=== PATIENT | male | born 1950 | race Caucasian/White ===

== ENCOUNTER 2025-05-01 14:21 | Emergency (ER) | payer MEDICARE, SELFPAY ==
[2025-05-01 14:37] VITALS: BP 165/100; PULSE 77; TEMP 36.9; O2SAT 97; BMI 27.2
--- OUTSIDE RECORDS SUMMARY | 2025-05-01 14:47 | XMS_ITS | Clinical Summary ---
Author Organization [employer] tem Address [id number] [address] [place] [address] Care Team Providers Care Stock Or Delivery Clerk Name Role Phone Unavailable Primary Care Provider Unavailabl e Immunizations ImmunizationAdministration DatesNext DueCOVID-19, mRNA, LNP-S, PF, 100mcg/0.5mL Dose10/01/2020,09/03/2020 Social History Tobacco UseTypesPacks/DayYears UsedDateSmoking Tobacco: Never AssessedChildcare AnswerDate OuxnnlxtFieydzgkfOcbxohj82/05/2021EmploymentAnswerDate Recorded SkqpntgrfdUcrsrgp17/05/2021Purpose - LifeAnswerDate RecordedPurpose and direction in mszvPphxrdm03/05/2021ex and Gender InformationValueDate Recorded Sex Assigned at BirthNot on fileLegal UouMske8302/04/2015 11:43 AM EDTGender IdentityNot on fileSexual OrientationNot on file Plan of Treatment Health MaintenanceDue DateLast DoneCommentsDepression Lriubxfvb77/14/1964Tobacco Sapcaszvk89/14/1964Adult BMI Xyajeveqo77/14/1970DTaP,Tdap and Td Vaccines (1 - Tdap)1971Zoster (Shingles) Vaccine (2 of 3)Fall Risk Oanoiqwbv31/14/2017COVID-19 Vaccine (3 - season)2020, 09/03/2020Influenza Gwylfpp91/03/2020, 03/31/2019, 03/30/2018, Additional history exists Medical Devices Not on file Insurance
[2025-05-01 15:19] LABS: Hematocrit 41.0 % (42.0-54.0); Hemoglobin 14.0 g/dL (14.0-18.0); Immature Granulocytes Abs Auto 0.02 10^3/uL (0.00-0.03); Immature Granulocytes Pct Auto 0.3 % (0.0-0.5); Lymphocytes Absolute Auto 1.1 10^3/uL (1.2-3.8); Mean Corpuscular HGB Conc 34.1 g/dL (29.9-35.2); Mean Corpuscular Hemoglobin 32.4 pg (25.9-34.0); Mean Corpuscular Volume 94.9 fL (80.0-94.0); Platelet Count 143 10^3/uL (150-450); Red Blood Count 4.32 10^6/uL (4.70-6.10); White Blood Count 6.2 10^3/uL (4.0-11.0)
[2025-05-01 15:31] LABS: Alanine Aminotransferase 29 U/L (16-63); Albumin Globulin Ratio 0.8; Albumin Level 3.4 g/dL (3.4-5.0); Alkaline Phosphatase 46 U/L (46-116); Anion Gap 11.7; Aspartate Amino Transferase 20 U/L (15-37); Blood Urea Nitrogen 12.0 mg/dL (7.0-18.0); Calcium 9.3 mg/dL (8.5-10.1); Carbon Dioxide 26.5 mmol/L (21.0-32.0); Chloride 103 mmol/L (98-107); Estimated GFR (African America >60 (>=60 mL/min/1.73m^2); Estimated GFR (Non-African Ame >60 (>=60 mL/min/1.73m^2); Globulin 4.3 g/dL; Glucose 123 mg/dL (74-106); Potassium 4.2 mmol/L (3.5-5.1); Sodium 137 mmol/L (136-145); Total Protein 7.7 g/dL (6.4-8.2)
[2025-05-01 15:32] LABS: INR 1.03; Prothrombin Time 10.9 sec (9.0-11.6)
--- NOTE | 2025-05-01 16:20 | ED_ITS ---
HPI - Extremity Problem General Chief complaint: Extremity Problem, Nontraumatic Stated complaint: R LEG PAIN & SWELLING Time Seen by Provider: 05/01/25 14:52 Source: patient Mode of arrival: walk-in Limitations: no limitations History of Present Illness HPI Narrative: Is coming to the ER with 2 to 3 days history of right leg swelling that started without any history of any long trips or any surgery, the patient did not have any fall, patient mentioned that the swelling today is better than what it was 2 days ago but he mentioned that he has been sitting more than usual as he is searching a lot of things on the Internet No chest pain no shortness of breath Related Data Previous Rx's ?Medication ?Instructions ?Recorded apixaban 5 mg tablet (Eliquis) 5 mg PO .as directed 30 days #45 05/01/25 tabs Allergies Allergy/AdvReac Type Severity Reaction Status Date / Time cephalexin (From Keflex) Allergy Difficulty Verified 05/01/25 14:36 Breathing Review of Systems ROS Status of ROS 10 or more systems reviewed and unremark able except as noted in history and below PFSH PFSH Social History Little interest or pleasure in doing things: not at all Feeling down, depressed, or hopeless: not at all Exam Narrative Exam Narrative: Nurses notes and vital signs reviewed and patient is not hypoxic. General: Well-appearing and in no apparent distress. Skin: Warm, dry, no pallor noted. No rash. Head: Normocephalic, atraumatic. Neck: Supple, non-tender. Eye: Pupils are equal, round and EOMI. No scleral icterus. Cardiovascular: Regular Rate and Rhythm without murmur, gallop or rub. Respiratory: No accessory muscle use or respiratory distress. Lungs are clear to auscultation, no wheezing, rales or rhonchi Chest Wall: no tenderness Back: No midline thoracic or lumbar vertebral tenderness. No CVA tenderness Musculoskeletal: The patient have a good anterior tibial pulse there is no vascular injury detected in the right lower extremity he also had a good capillary refill, but the patient have significant edema on the right side mostly 2+ and the edema is in the whole leg from the thigh downwards, there is no tenderness on palpation and the patient have full range of movement GI: Abdomen is soft, non-distended. Normal bowel sounds. No masses appreciated. No tenderness to palpation. No rebound, guarding, or rigidity noted. Neurological: A&O x4. No cranial nerve dysfunction observed. No truncal ataxia. Moves all extremities. Sensation intact. Psychiatric: Cooperative and interactive. Normal mood and affect. Constitutional Vital Signs, click to edit/add: Last Vital Signs Temp 98.4 F 05/01/25 14:37 Pulse 77 05/01/25 14:37 Resp 12 05/01/25 14:37 BP 165/100 H 05/01/25 14:37 Pulse Ox 97 05/01/25 14:37 O2 Del Method Room Air 05/01/25 14:37 Course Vital Signs Vital signs: Vital Signs Temperature 98.4 F 05/01/25 14:37 Pulse Rate 77 05/01/25 14:37 Respiratory Rate 12 05/01/25 14:37 Blood Pressure 165/100 H 05/01/25 14:37 Pulse Oximetry 97 05/01/25 14:37 Oxygen Delivery Method Room Air 05/01/25 14:37 Temperature 98.4 F 05/01/25 14:37 Pulse Rate 77 05/01/25 14:37 Respiratory Rate 12 05/01/25 14:37 Blood Pressure 165/100 H 05/01/25 14:37 Pulse Oximetry 97 05/01/25 14:37 Oxygen Delivery Method Room Air 05/01/25 14:37 MDM - Extremity (Nontraumatic) MDM Narrative Medical decision making narrative: CBC and chemistry showed no acute pathology Ultrasound of the right lower extremity showed that the patient have DVT of the right femoral popliteal and posterior tibial veins The patient case discussed with regarding the new extensive DVT and for now the patient is good to be discharged with Eliquis Avoid any exertion educated about the symptoms of shortness of breath and chest pain that could be secondary to PE He will follow-up with Dr. Murrell next week The patient to follow-up with the primary care within 2 to 3 days and to come back to the ER in case of any worsening of the current symptoms or any new symptoms or concerns Lab Data Labs: Lab Results 05/01/25 Range/Units 15:07 WBC 6.2 (4.0-11.0) 10^3/uL RBC 4.32 L (4.70-6.10) 10^6/uL Hgb 14.0 (14.0-18.0) g/dL Hct 41.0 L (42.0-54.0) % MCV 94.9 H (80.0-94.0) fL MCH 32.4 (25.9-34.0) pg MCHC 34.1 (29.9-35.2) g/dL RDW 11.6 (11.0-15.0) % Plt Count 143 L (150-450) 10^3/uL MPV 9.2 L (9.5-13.5) fL Neut % (Auto) 68.9 (43.0-75.0) % Lymph % (Auto) 18.2 L (20.5-60.0) % [place] % (Auto) 8.6 (1.7-12.0) % Eos % (Auto) 2.9 (0.9-7.0) % Baso % (Auto) 1.1 (0.2-2.0) % Neut # (Auto) 4.3 (1.4-6.5) 10^3/uL Lymph # (Auto) 1.1 L (1.2-3.8) 10^3/uL [place] # (Auto) 0.5 (0.3-0.8) 10^3/uL Eos # (Auto) 0.2 (0.0-0.7) 10^3/uL Baso # (Auto) 0.1 (0.0-0.1) 10^3/uL Abs Immat Gran (auto) 0.02 (0.00-0.03) 10^3/uL Imm/Tot Granulo (auto) 0.3 (0.0-0.5) % PT 10.9 (9.0-11.6) sec INR 1.03 Sodium 137 (136-145) mmol/L Potassium 4.2 (3.5-5.1) mmol/L Chloride 103 (98-107) mmol/L Carbon Dioxide 26.5 (21.0-32.0) mmol/L Anion Gap 11.7 BUN 12.0 (7.0-18.0) mg/dL Creatinine 1.18 (0.70-1.30) mg/dL Est GFR ( Amer) >60 (>=60 mL/min/1.73m^2) Est GFR (Non-Af Amer) >60 (>=60 mL/min/1.73m^2) BUN/Creatinine Ratio 10.2 Glucose 123 H (74-106) mg/dL Calcium 9.3 (8.5-10.1) mg/dL Total Bilirubin 0.7 (0.2-1.0) mg/dL AST 20 (15-37) U/L ALT 29 (16-63) U/L Alkaline Phosphatase 46 (46-116) U/L Total Protein 7.7 (6.4-8.2) g/dL Albumin 3.4 (3.4-5.0) g/dL Globulin 4.3 g/dL Albumin/Globulin Ratio 0.8 Discharge Plan Discharge Chief Complaint: Extremity Problem, Nontraumatic Clinical Impression: Deep vein thrombosis of lower extremity Patient Disposition: Home, Self-Care Time of Disposition Decision: 16:39 Condition: Good Prescriptions / Home Meds: New Eliquis 5 mg tablet 5 mg PO .as directed 30 Days Qty: 45 0RF Rx Instructions: Please start by 10 mg twice a day for 7 days followed by 5 mg twice a day and give the patient a whole month supply Print Language: Vincentian Instructions: Deep Vein Thrombosis (DC) Additional Instructions: Avoid any exertion and come back to the ER in case of any shortness of breath or any chest pain Referrals: Amanda Murrell MD [Physician] - As soon as possible Referral Note: Please call and make an appointment with next week Physician,Non-Staff, [Primary Care Provider] - 1 week
[2025-05-01] MEDS: APIXABAN 5 MG TABLET 10 MG PO (17:03)
[2025-05-01 17:07] VITALS: BP 165/90; PULSE 74; O2SAT 98
== END 2025-05-01 17:09 | disposition home or self-care (01) ==
PROVIDERS: Emergency Provider Emergency Medicine
DX: I82.411 Acute embolism and thrombosis of right femoral vein (principal); I82.431 Acute embolism and thrombosis of right popliteal vein; I82.441 Acute embolism and thrombosis of right tibial vein
CPT/HCPCS: 36415; 80053; 85025; 85610; 93971; 99284

== ENCOUNTER 2025-05-19 09:57 | Outpatient (RCR) | payer MEDICARE, SELFPAY | END 2025-05-31 23:59 | disposition home or self-care (01) | LOC: HEMC 09:57 | PROVIDERS: Visit Provider Internal Medicine Hematology & Oncology | DX: I82.401 Acute embolism and thrombosis of unspecified deep veins of right lower extremity (principal); D69.6 Thrombocytopenia, unspecified; Z79.01 Long term (current) use of anticoagulants; Z87.891 Personal history of nicotine dependence; M79.604 Pain in right leg | CPT/HCPCS: G0463 ==

== ENCOUNTER 2025-06-16 12:00 | Outpatient (OUT) | payer MEDICARE, SELFPAY ==
--- OUTSIDE RECORDS SUMMARY | 2025-06-16 10:10 | XMS_ITS | Clinical Summary ---
Author Organization [employer] tem Address [facility] [id number] [address] [place] [address] Care Team Providers Care Cra Name Role Phone Unavailable Primary Care Provider Unavailabl e Immunizations ImmunizationAdministration DatesNext DueCOVID-19, mRNA, LNP-S, PF, 100mcg/0.5mL Dose10/01/2020,09/03/2020 Social History Tobacco UseTypesPacks/DayYears UsedDateSmoking Tobacco: Never AssessedChildcare AnswerDate FxtrsknjMftevuteuWxykmxk80/05/2021EmploymentAnswerDate Recorded HlgrmprswbFnuepik12/05/2021Purpose - LifeAnswerDate RecordedPurpose and direction in bsoxSaxgtpq27/05/2021ex and Gender InformationValueDate Recorded Sex Assigned at BirthNot on fileLegal WluQtkj5502/04/2015 11:43 AM EDTGender IdentityNot on fileSexual OrientationNot on file Plan of Treatment Health MaintenanceDue DateLast DoneCommentsDepression Tcgyoxayc47/14/1964Tobacco Cfwddlbkb94/14/1964Adult BMI Fhehvuwqi70/14/1970DTaP,Tdap and Td Vaccines (1 - Tdap)1971Zoster (Shingles) Vaccine (2 of 3)Fall Risk Epwwwyeed74/14/2017COVID-19 Vaccine (3 - season)2020, 09/03/2020Influenza Vnotqnz34/03/2020, 03/31/2019, 03/30/2018, Additional history existsRSV ( or age 60+ yrs) (1 - 1-dose 75+ series) 2027 Medical Devices Not on file Insurance
--- OUTSIDE RECORDS SUMMARY | 2025-06-16 12:04 | XMS_ITS | Clinical Summary ---
Author Organization [employer] tem Address [facility] [id number] [address] [place] [address] Care Team Providers Care Uke Driver Name Role Phone Unavailable Primary Care Provider Unavailabl e Immunizations ImmunizationAdministration DatesNext DueCOVID-19, mRNA, LNP-S, PF, 100mcg/0.5mL Dose10/01/2020,09/03/2020 Social History Tobacco UseTypesPacks/DayYears UsedDateSmoking Tobacco: Never AssessedChildcare AnswerDate MsqgjlhwGkawcahcnVctvouj42/05/2021EmploymentAnswerDate Recorded AtfmjtchgxGrutfmq41/05/2021Purpose - LifeAnswerDate RecordedPurpose and direction in hzogIsgdmbq96/05/2021ex and Gender InformationValueDate Recorded Sex Assigned at BirthNot on fileLegal AmyTeeu6202/04/2015 11:43 AM EDTGender IdentityNot on fileSexual OrientationNot on file Plan of Treatment Health MaintenanceDue DateLast DoneCommentsDepression Amfrwvdhn04/14/1964Tobacco Wvxbshmea40/14/1964Adult BMI Edfdvyzvf83/14/1970DTaP,Tdap and Td Vaccines (1 - Tdap)1971Zoster (Shingles) Vaccine (2 of 3)Fall Risk Nnuqmxnwp12/14/2017COVID-19 Vaccine (3 - season)2020, 09/03/2020Influenza Fgqzbru01/03/2020, 03/31/2019, 03/30/2018, Additional history existsRSV ( or age 60+ yrs) (1 - 1-dose 75+ series) 2027 Medical Devices Not on file Insurance
[2025-06-17 14:12] LABS: Anticardiolipin Ab,IgG,Qn <9 GPL U/mL (0-14); Anticardiolipin Ab,IgM,Qn <9 MPL U/mL (0-12); Beta-2 Glycoprotein I Ab, IgA <9 (0-25); Beta-2 Glycoprotein I Ab, IgG <9 (0-20); Beta-2 Glycoprotein I Ab, IgM <9 (0-32)
== END 2025-06-16 12:01 | disposition home or self-care (01) ==
LOC: LAB 12:01
PROVIDERS: Visit Provider Internal Medicine Hematology & Oncology
DX: D69.6 Thrombocytopenia, unspecified (principal); I82.401 Acute embolism and thrombosis of unspecified deep veins of right lower extremity; Z12.5 Encounter for screening for malignant neoplasm of prostate; D68.59 Other primary thrombophilia; Z12.89 Encounter for screening for malignant neoplasm of other sites
CPT/HCPCS: 36415; 86146; 86147; G0103